=== PATIENT | female | born 1995 | race Caucasian/White ===

== ENCOUNTER 2016-05-09 16:59 | Emergency (ER) | payer SELFPAY ==
[2016-05-09 20:04] VITALS: BP 110/68
--- NOTE | 2016-05-09 20:22 | ED Physician Chart ---
Chief Complaint/HPI - Patient Information Date Seen:: 05/09/16 Time Seen:: 20:19 Chief Complaint:: rash on leg History of Present Illness:: pt her because she noted a rash on her left ant thigh...posterior aspect...x few days. she thinks it began after she was at [employer] trying on clothes. no drainage. mild painfull worse w touch. no hx of camping in peoples. no fever. no arthralgia. never had this before. [facility] gc/chlamydia infection she has known about for some time. she received a shot (im rocephin?) and 2 tabs of azithromycin for 1x tx but they refused to look at her leg rash so sent her here. Allergies:: Allergies Allergy/AdvReac Type Severity Reaction Status Date / Time No Known Allergies Allergy Verified 05/09/16 17:31 Vitals:: Vital Signs - 8 hr 05/09/16 17:32 BP 110/68 Historian:: Patient Review of Systems - Review of Systems General/Constitutional: No fever, No chills, No weight loss, No weakness, No diaphoresis, No edema, No loss of appetite Skin: Skin lesions, Rash, No bruising Head: No headache, No light-headedness Eyes: No loss of vision, No pain, No diplopia ENT: No earache, No nasal drainage, No sore throat, No tinnitus Neck: No neck pain, No swelling, No thyromegaly, No stiffness, No mass noted Cardio Vascular: No chest pain, No palpitations, No PND, No orthopnea, No edema Pulmonary: No SOB, No cough, No sputum, No wheezing GI: No nausea, No vomiting, No diarrhea, No pain, No melena, No hematochezia, No constipation, No hematemesis G/U: No dysuria, No frequency, No hematuria Trouble Clerk: Vaginal discharge Musculoskeletal: No bone or joint pain, No back pain, No muscle pain Endocrine: No polyuria, No polydipsia Psychiatric: No prior psych history, No depression, No anxiety, No suicidal ideation Hematopoietic: No bruising, No lymphadenopathy Allergic/Immuno: No urticaria, No angioedema Neurological: No syncope, No focal symptoms, No weakness, No paresthesia, No headache, No seizure, No dizziness, No confusion, No vertigo Past Medical History - Past Medical History Past Medical History: No significant medical hx Social History: Non Smoker Medication: Reviewed Physical Exam - Physical Examination General/Constitutional: Awake, Well-developed, well-nourished, Alert, No distress, GCS 15, Non-toxic appearing, Ambulatory Other Gen/Cons comments:: pt unusual affect..seems very excited w rapid speech.. Head: Atraumatic Eyes: Lids, conjuctiva normal, PERRL, EOMI Skin: Nl inspection, No rash, No skin lesions, No ecchymosis, Well hydrated, No lymphadenopathy ENMT: External ears, nose nl, Nasal exam nl, Lips, teeth, gums nl Neck: Nontender, Full ROM w/o pain, No JVD, No nuchal rigidity, No bruit, No mass, No stridor Respiratory: Nl effort/Exclusion, Clear to Auscultation, No Wheeze/Rhonchi/Rales Cardio Vascular: RRR, No murmur, gallop, rubs, NL S1 S2 GI: No tenderness/rebounding/guarding, No organomegaly, No hernia, Normal BS's, Nondistended, No mass/bruits, No McBurney tenderness : No CVA tenderness Extremities: No tenderness or effusion, Full ROM, normal strength in all extremities, No edema, Normal digits & nails Other Extremities comments:: rash at posterior left prox thigh about 2.5 inch diameter w red area and slt induration but no palpable pus pocket. no open sinus nor drainage Neuro/Psych: Alert/oriented, DTR's symmetric, Normal sensory exam, Normal motor strength, Judgement/insight normal, Mood normal, Normal gait, No focal deficits Misc: normal gait, Normal back, No paraspinal tenderness ED Septic Shock - . Is Septic Shock (SBP<90, OR Lactate>4 mmol\L) present?: No - <6hrs of presentation: Vital Signs: Vital Signs - 8 hr 05/09/16 17:32 BP 110/68 Reassessment (Disposition) - Reassessment Reassessment Condition:: Unchanged - Diagnosis Diagnosis:: 1 rt posterior thigh local cellulitis..suspect early mrsa lesion - Aftercare/Follow up Instructions Medication Prescribed:: bactrim, keflex and bactroban ointment use as directed...also hot soaks...see pmd for rechk in 2-3 days. return if worse. - Patient Disposition Discharge/Transfer:: Home Condition at Disposition:: Unchanged
== END 2016-05-09 20:40 | disposition home or self-care (01) ==
LOC: ER 16:59
DX: L03.115 Cellulitis of right lower limb (principal)
CPT/HCPCS: Z7502